=== PATIENT | female | born 1970 | race Caucasian/White ===

== ENCOUNTER → 2018-05-10 | Outpatient (CLI) | payer OTHER ==
[2018-05-11 14:16] VITALS: BMI 42.5
== END | disposition home or self-care (01) ==
LOC: LABWHC1 09:40
PROVIDERS: ATTEND Family Medicine
DX: E66.09 Other obesity due to excess calories (principal); Z68.41 Body mass index [BMI] 40.0-44.9, adult
CPT/HCPCS: 97802

== ENCOUNTER → 2018-06-26 | Outpatient (CLI) | payer OTHER ==
[2018-06-26 11:35] VITALS: BMI 43.8
== END ==
LOC: DBWHC3 08:56
PROVIDERS: ATTEND Family Medicine
DX: E66.01 Morbid (severe) obesity due to excess calories (principal); Z68.41 Body mass index [BMI] 40.0-44.9, adult
CPT/HCPCS: 97803

== ENCOUNTER → 2020-11-14 | Outpatient (CLI) | payer OTHER ==
--- NOTE | 2020-11-14 08:02 | US ---
EXAMINATION TYPE: US abdomen complete DATE OF EXAM: 11/14/2020 COMPARISON: NONE CLINICAL HISTORY: R16.0 Hepatomegaly, not elsewhere classified. RUQ pain, hepatomegaly EXAM MEASUREMENTS: Liver Length: 19.0 cm Gallbladder Wall: 0.3 cm CBD: 0.4 cm Spleen: 10.3 cm Right Kidney: 10.3 x 3.8 x 4.8 cm Left Kidney: 10.3 x 5.1 x 5.0 cm Technical limitations due to patient's body habitus and large amount of overlying bowel content Pancreas: limited evaluation Liver: enlarged and attenuating, heterogeneous. areas of focal sparing near celsa hepatis Gallbladder: no evidence of stones Evidence for sonographic Gabriel's sign: no CBD: limited evaluation Spleen: appears wnl Right Kidney: no evidence of hydronephrosis Left Kidney: limited evaluation, no evidence of hydronephrosis Upper IVC: wnl Abd Aorta: distal and bifurcation obscured IMPRESSION: 1. Heterogeneous liver correlate for hepatic steatosis or hepatitis. The celsa hepatis there is an ar ea of low echogenicity which may represent area of focal fatty sparing could be confirmed with CT sca n to exclude other etiologies.
== END | disposition home or self-care (01) ==
LOC: RADUSWWP 07:25
PROVIDERS: ATTEND Internal Medicine Rheumatology
DX: K76.0 Fatty (change of) liver, not elsewhere classified (principal); R16.0 Hepatomegaly, not elsewhere classified
CPT/HCPCS: 76700

== ENCOUNTER → 2023-03-09 | Outpatient (CLI) | payer MEDICARE, OTHER ==
[2023-03-09 15:18] LABS: Albumin 4.7 g/dL (3.8-4.9); Protein, Total 7.3 g/dL (6.2-8.2)
[2023-03-09 15:37] LABS: Creatine Kinase 112 U/L (26-186); Rheumatoid Factor, Qnt 25 IU/mL (0-15); T4, Free (Free Thyroxine) 1.28 ng/dL (0.80-1.80); Uric Acid 3.7 mg/dL (2.9-7.7)
[2023-03-09 15:42] LABS: ALT 24 U/L (8-44); AST 27 U/L (13-35); Albumin 4.7 g/dL (3.8-4.9); Albumin/Globulin Ratio 1.88 Ratio (1.60-3.17); Alkaline Phosphatase 109 U/L (41-126); BUN/Creat Ratio 26.25 Ratio (12.00-20.00); Calcium 9.8 mg/dL (8.7-10.3); Carbon Dioxide 21.7 mmol/L (21.6-31.8); Chloride 100 mmol/L (96-109); Globulin 2.5 g/dL (1.6-3.3); Glucose 125 mg/dL (70-110); Potassium 4.6 mmol/L (3.5-5.5); Sodium 139 mmol/L (135-145); Total Bilirubin 0.3 mg/dL (0.3-1.2); Total Protein 7.2 g/dL (6.2-8.2)
[2023-03-09 15:43] LABS: Hepatitis B Surface Antigen Nonreactive; Hepatitis C IgG Antibody Nonreactive
[2023-03-09 15:47] LABS: Basophils # (A) 0.03 X 10*3/uL (0.00-0.10); Basophils % (A) 0.5 %; Eosinophils # (A) 0.16 X 10*3/uL (0.04-0.35); Eosinophils % (A) 2.9 %; HCT 42.5 % (37.2-46.3); HGB 14.1 g/dL (12.0-15.0); Lymphocytes # (A) 1.53 X 10*3/uL (0.90-5.00); Lymphocytes % (A) 27.5 %; MCH 30.1 pg (27.0-32.0); MCHC 33.2 g/dL (32.0-37.0); MCV 90.6 FL (80.0-97.0); Mean Platelet Volume 9.7 FL (9.5-12.2); Monocytes # (A) 0.58 X 10*3/uL (0.20-1.00); Monocytes % (A) 10.4 %; NRBC Per 100 WBC 0 X 10*3/uL (0.00-0.01); Neutrophils # (A) 3.26 X 10*3/uL (1.80-7.70); Neutrophils % (A) 58.5 %; Platelet Count 377 X 10*3/uL (140-440); RBC 4.69 X 10*6/uL (4.10-5.20); RDW 12.1 % (11.5-14.5); WBC 5.57 X 10*3/uL (4.50-10.00)
[2023-03-09 15:56] LABS: Appearance,Urine Clear (Clear); Bilirubin,Urine Negative (Negative); Blood,Urine Negative (Negative); Color,Urine Yellow (Yellow); Ketones,Urine Negative (Negative); Nitrite,Urine Negative (Negative); PH, Urine 5.5; Specific Gravity,Urine 1.024 (1.001-1.030); Urobilinogen,Urine 0.2 E.U./DL
[2023-03-09 16:09] LABS: Erythrocyte Sedimentation Rate 21 mm/Hr (0-30)
[2023-03-09 17:28] LABS: Anti-DNA, DS unit <1.0 IU/mL; Anti-Smith Ab Interp Negative (Negative); Cardiolipin Ab IgG Interp Negative (Negative); Cardiolipin Ab IgM Interp Negative (Negative); Cardiolipin IgM Antibody 1.5 U/mL; Centromere Antibody <0.2 AI; Centromere Antibody Interp Negative (Negative); DNA Double-Stranded Negative (Negative); Scleroderma SC-70 Ab <0.2 AI
[2023-03-09 20:15] LABS: Cyclic Citrull Pep IgG Unit <1.5 U/mL (<=3.9); Cyclic Citrullinated Pep IgG Negative
[2023-03-10 11:59] LABS: Angiotensin-1 Converting Enz. 22 U/L (8-52)
[2023-03-10 12:00] LABS: APTT 31 Sec(s) (<43); Dilute Russell Viper Venom 38 Sec(s) (<44)
[2023-03-10 13:54] LABS: C-ANCA <1:20 Titer (<1:20)
[2023-03-10 14:09] LABS: Free Kappa Lt Chain Qnt, Serum 1.66 mg/dL (0.33-1.94); Free Lambda Lt Chain Qnt, Seru 1.41 mg/dL (0.57-2.63)
== END | disposition home or self-care (01) ==
LOC: LABWHC1 10:18
PROVIDERS: ATTEND Internal Medicine Rheumatology
DX: Z11.59 Encounter for screening for other viral diseases (principal); M13.0 Polyarthritis, unspecified; Z72.89 Other problems related to lifestyle; E55.9 Vitamin D deficiency, unspecified; E03.9 Hypothyroidism, unspecified; R76.0 Raised antibody titer
CPT/HCPCS: 36415; 80053; 81003; 82164; 82306; 82550; 83520; 83883; 84165; 84439; 84443; 84550; 85025; 85613; 85652; 85730; 86038; 86140; 86147; 86160; 86162; 86200; 86225; 86235; 86255; 86334; 86431; 86803; 87340